=== PATIENT | female | born 1980 | race Two or more races ===

== ENCOUNTER 2021-01-19 09:17 | Emergency (ER) | payer OTHER ==
[~2021-01-19] VITALS: Ht 165.1 cm; Wt 90.7 kg
--- NOTE | 2021-01-19 09:40 | NUR ---
at bedside for assessment
[2021-01-19] MEDS ORDERED: NEOMY/BACITRA/POLYMYXIN B OINT UD PACKET TP ONE ×2 (09:45→09:51)
[2021-01-19] MEDS ORDERED: TDAP DIPH,PERTUSS,TET VAC/PF 0.5 ML DISP.SYRIN IM ONE ×2 (09:45→09:51)
--- NOTE | 2021-01-19 09:59 | NUR ---
Right lower leg ulcer cleansed with normal saline, triple antibiotic applied and ulcer dressed with bordered gauze, patient olerated procedure well
[2021-01-19] MEDS ORDERED: MUPI22OI2 TP (10:03)
[2021-01-19] MEDS ORDERED: SULF1TAB48 PO (10:03)
--- NOTE | 2021-01-19 10:40 | NUR ---
US tech at bedside.
--- NOTE | 2021-01-19 11:42 | NUR ---
Patient discharged to home in stable condition. Able to ambulate with steady gait, no sign sof distress noted. Written and verbal after care instructions given. Patient verbalizes understanding of instructions. Stressed follow up or return to ER for worsening s/s.
[2021-01-19 11:43] VITALS: BP 118/75
== END 2021-01-19 11:44 | disposition home or self-care (01) ==
LOC: ER 09:26
DX: S80.861A Insect bite (nonvenomous), right lower leg, initial encounter (principal); L08.9 Local infection of the skin and subcutaneous tissue, unspecified; L97.311 Non-pressure chronic ulcer of right ankle limited to breakdown of skin; W57.XXXA Bitten or stung by nonvenomous insect and other nonvenomous arthropods, initial encounter; Y92.89 Other specified places as the place of occurrence of the external cause; I83.893 Varicose veins of bilateral lower extremities with other complications
CPT/HCPCS: 90715; A4663

== ENCOUNTER 2022-04-07 07:32 | Emergency (ER) | payer OTHER ==
[~2022-04-07] VITALS: Ht 165.1 cm; Wt 104.3 kg
[~2022-04-07 07:32] MED LIST: MUPI22OI2 TP; SULF1TAB48 PO
--- NOTE | 2022-04-07 07:44 | NUR ---
at bedside to examine pt.
[2022-04-07] MEDS ORDERED: CEPH500C2 PO (07:52)
--- NOTE | 2022-04-07 07:57 | NUR ---
DCd instructions and prescription given to pt. who verbalized undertanding. pt. left room ambulatory [id number]. vitals stable.
== END 2022-04-07 07:59 | disposition home or self-care (01) ==
LOC: ER 07:33
DX: I87.2 Venous insufficiency (chronic) (peripheral) (principal); L97.829 Non-pressure chronic ulcer of other part of left lower leg with unspecified severity; M79.605 Pain in left leg; F17.210 Nicotine dependence, cigarettes, uncomplicated
CPT/HCPCS: A4663

== ENCOUNTER 2024-12-23 00:09 | Emergency (ER) | payer OTHER ==
[~2024-12-23] VITALS: Ht 165.1 cm; Wt 122.2 kg
[~2024-12-23 00:09] MED LIST changes: +CEPH500C2 PO
[2024-12-23 01:17] LABS: BASOPHILS # (AUTO) 0.1 K/UL (0.0-0.2); BASOPHILS % (AUTO) 0.8 % (0.0-2.0); DIFFERENTIAL COMMENT 0; EOSINOPHILS # (AUTO) 0.5 K/uL (0.0-0.7); EOSINOPHILS % (AUTO) 3.9 % (0.0-7.0); HEMATOCRIT 37.4 % (31.2-41.9); HEMOGLOBIN 12.3 g/dL (10.9-14.3); LYMPHOCYTES # (AUTO) 3.4 K/uL (0.8-4.8); LYMPHOCYTES % (AUTO) 26.1 % (20.5-51.5); MEAN CORPUSCULAR HEMOGLOBIN 24.8 uug (24.7-32.8); MEAN CORPUSCULAR HGB CONC 33 g/dL (32.3-35.6); MEAN CORPUSCULAR VOLUME 75.5 fL (75.5-95.3); MONOCYTES # (AUTO) 0.6 K/uL (0.1-1.30); MONOCYTES % (AUTO) 4.3 % (0.0-11.0); NEUTROPHILS # (AUTO) 8.4 K/uL (1.8-8.9); NEUTROPHILS % (AUTO) 64.9 % (38.5-71.5); PLATELET COUNT (AUTO) 356 K/uL (179-408); RED BLOOD CELL COUNT(AUTO) 4.96 MIL/uL (3.63-4.92); RED CELL DISTRIBUTION WIDTH 15.6 % (12.3-17.7)
[2024-12-23 01:20] LABS: CALCIUM 8.6 mg/dL (8.5-10.1); CREATININE 0.8 mg/dL (0.6-1.3); POTASSIUM 3.4 mmol/L (3.5-5.1)
[2024-12-23 01:25] LABS: ALBUMIN 2.8 g/dL (3.4-5.0); BILIRUBIN,TOTAL 0.2 mg/dL (0.2-1.0)
[2024-12-23 01:27] LABS: C-REACTIVE PROTEIN 3.39 mg/dL (0.00-0.30)
[2024-12-23] MEDS ORDERED: CEPH500C2 PO (01:41)
[2024-12-23] MEDS ORDERED: SULF1TAB48 PO (01:41)
[2024-12-23] MEDS ORDERED: SULFAMETH/TRIMETH 800/160 MG TABLET ONE (01:43)
[2024-12-23] MEDS ORDERED: POTASSIUM CHLORIDE 20 MEQ TAB.PRT.SR ONE (01:43)
[2024-12-23] MEDS ORDERED: CEphaleXIN 500 MG CAPSULE ONE (01:43)
[2024-12-23] MEDS: POTASSIUM CHLORIDE 20 MEQ TAB.PRT.SR PO ONE (01:44)
[2024-12-23] MEDS: SULFAMETH/TRIMETH 800/160 MG TABLET PO ONE (01:44)
[2024-12-23] MEDS: CEphaleXIN 500 MG CAPSULE PO ONE (01:44)
[2024-12-23 01:58] VITALS: BP 158/100; TEMP 98; O2SAT 97
== END 2024-12-23 01:59 | disposition home or self-care (01) ==
LOC: ER 00:12
DX: L03.116 Cellulitis of left lower limb (principal); L97.929 Non-pressure chronic ulcer of unspecified part of left lower leg with unspecified severity; E87.6 Hypokalemia; E88.09 Other disorders of plasma-protein metabolism, not elsewhere classified; M79.605 Pain in left leg; F17.200 Nicotine dependence, unspecified, uncomplicated; E66.01 Morbid (severe) obesity due to excess calories; I83.029 Varicose veins of left lower extremity with ulcer of unspecified site; R03.0 Elevated blood-pressure reading, without diagnosis of hypertension; Z68.41 Body mass index [BMI] 40.0-44.9, adult
CPT/HCPCS: 36415; 83605; 85025; 85610; 86140; A4606; A4663